=== PATIENT | male | born 2005 | race Two or more races ===

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

== ENCOUNTER 2023-02-06 07:52 | Emergency (ER) | payer MEDICAID ==
[2023-02-06] MEDS ORDERED: Ondansetron 4 MG/2 ML SDV IVPUSH ONE (08:27)
[2023-02-06] MEDS ORDERED: Sodium Chloride 0.9% 1,000 ML IV SCH (08:30)
[2023-02-06 08:52] LABS: CORONAVIRUS COVID-19 NAA NEGATIVE (NEGATIVE)
== END 2023-02-06 10:47 | disposition home or self-care (01) ==
LOC: JD.ED 07:52
DX: R11.2 Nausea with vomiting, unspecified (principal); Z20.822 Contact with and (suspected) exposure to COVID-19
CPT/HCPCS: 0241U; 36415; 80053; 85025; 96361; 96374; 99284; J2405; J7030; 99283

== ENCOUNTER 2023-02-16 16:52 | Emergency (ER) | payer MEDICAID ==
[2023-02-16] MEDS ORDERED: Ondansetron 4 MG/2 ML SDV IVPUSH ONE (17:15)
[2023-02-16] MEDS ORDERED: LORazepam 2 MG/ML SDV IVPUSH ONE (17:15)
[2023-02-16] MEDS ORDERED: Sodium Chloride 0.9% 10 ML Syringe FLUSH PRN (17:15)
[2023-02-16 17:27] LABS: BASOPHILS ABSOLUTE AUTO 0.02 K/mm3 (0.01-0.08); BASOPHILS PERCENT AUTO 0.2 % (0.1-1.2); EOSINOPHILS ABSOLUTE AUTO 0.15 K/mm3 (0.04-0.54); EOSINOPHILS PERCENT AUTO 1.4 (0.8-7.0); HEMATOCRIT 46.6 % (40.1-51.0); HEMOGLOBIN 16.2 gm/dl (13.7-17.5); IMMATURE GRAN ABSOLUTE AUTO 0.02 K/mm3 (0.00-0.10); IMMATURE GRAN PERCENT AUTO 0.2 % (<=1.0); LYMPHOCYTES ABSOLUTE AUTO 2.48 K/mm3 (1.32-3.57); LYMPHOCYTES PERCENT AUTO 23.6 % (21.8-53.1); MEAN CORPUSCULAR HEMOGLOBIN 29.9 pg (25.7-32.2); MEAN CORPUSCULAR HGB CONC 34.8 g/dl (32.2-35.5); MEAN PLATELET VOLUME 9.2 fl (9.4-12.3); MONOCYTES ABSOLUTE AUTO 1.07 K/mm3 (0.30-0.82); MONOCYTES PERCENT AUTO 10.2 % (5.3-12.2); NEUTROPHILS ABSOLUTE AUTO 6.79 K/mm3 (1.78-5.38); NEUTROPHILS PERCENT AUTO 64.4 % (34.0-67.9); PLATELET COUNT,PLT 348 K/mm3 (163-337); RED BLOOD CELL COUNT 5.42 M/mm3 (4.63-6.08); WHITE BLOOD CELL COUNT,WBC 10.53 K/mm3 (4.23-9.07)
[2023-02-16 18:00] LABS: A/G RATIO 1.3 (1-2); ALBUMIN 4.6 g/dl (3.4-5.0); ANION GAP 14.8 (5-15); BILIRUBIN TOTAL 0.5 mg/dL (0.2-1.0); CALCIUM 9.2 mg/dL (8.5-10.1); EST CRCL DRUG DOSING (CG) 114.72 mL/min; MAGNESIUM 2.1 mg/dL (1.8-2.4); POTASSIUM,K 3.8 mEq/L (3.5-5.1); PROTEIN TOTAL,TP 8.2 g/dl (6.4-8.2)
== END 2023-02-16 19:08 | disposition home or self-care (01) ==
LOC: JD.ED 16:52
DX: F41.1 Generalized anxiety disorder (principal); F43.0 Acute stress reaction
CPT/HCPCS: 36415; 80053; 83735; 84484; 85025; 93005; 96374; 96375; 99285; J2060; J2405; J3490

== ENCOUNTER 2023-04-16 14:01 | Emergency (ER) | payer MEDICAID ==
[2023-04-16 15:18] LABS: HEMATOCRIT 42.2 % (40.1-51.0); HEMOGLOBIN 14.7 gm/dl (13.7-17.5); MEAN CORPUSCULAR HEMOGLOBIN 30.3 pg (25.7-32.2); MEAN CORPUSCULAR HGB CONC 34.8 g/dl (32.2-35.5); MEAN PLATELET VOLUME 9.6 fl (9.4-12.3); PLATELET COUNT,PLT 315 K/mm3 (163-337); RED BLOOD CELL COUNT 4.85 M/mm3 (4.63-6.08); WHITE BLOOD CELL COUNT,WBC 5.89 K/mm3 (4.23-9.07)
[2023-04-16 15:49] LABS: BAND PERCENT MAN 0 % (0-10); BASOPHILS PERCENT MAN 0 (0.2-1.2); EOSINOPHILS PERCENT MAN 4 % (0.8-7.0); LYMPHOCYTES % ATYPICAL MANUAL 0 %; LYMPHOCYTES PERCENT MAN 49 % (20-40); MONOCYTES PERCENT MAN 2 % (2-10); PLATELET COUNT ESTIMATE ADEQUATE
[2023-04-16 15:54] LABS: A/G RATIO 1.2 (1-2); ALBUMIN 4.2 g/dl (3.4-5.0); ANION GAP 15.5 (5-15); BILIRUBIN TOTAL 0.6 mg/dL (0.2-1.0); EST CRCL DRUG DOSING (CG) 107.71 mL/min; POTASSIUM,K 3.5 mEq/L (3.5-5.1); PROTEIN TOTAL,TP 7.8 g/dl (6.4-8.2)
== END 2023-04-16 16:22 | disposition home or self-care (01) ==
LOC: JD.ED 14:01
DX: R07.81 Pleurodynia (principal); F17.210 Nicotine dependence, cigarettes, uncomplicated
CPT/HCPCS: 36415; 71045; 71045-26; 80053; 85007; 85027; 93005; 99284

== ENCOUNTER 2023-10-08 18:46 | Emergency (ER) | payer SELFPAY ==
[2023-10-08] MEDS ORDERED: Ibuprofen 800 MG Tab PO ONE (20:26)
[2023-10-08] MEDS ORDERED: Acetaminophen 325 MG Tab PO ONE (20:26)
== END 2023-10-08 20:54 | disposition home or self-care (01) ==
LOC: JD.ED 18:46
DX: M25.531 Pain in right wrist (principal)
CPT/HCPCS: 73110; 73130; 99283; A9270; 99282

== ENCOUNTER 2024-06-24 12:07 | Emergency (ER) | payer SELFPAY ==
[2024-06-24 13:13] LABS: BASOPHILS PERCENT AUTO 0.4 % (0.0-1.0); EOSINOPHILS ABSOLUTE AUTO 0.2 K/mm3 (0.0-0.4); EOSINOPHILS PERCENT AUTO 1.9 % (0.0-6.0); HEMATOCRIT 41.1 % (42.0-52.0); HEMOGLOBIN 14.3 gm/dl (14.0-18.0); IMMATURE GRAN ABSOLUTE AUTO 0.05 K/mm3 (0.00-0.05); IMMATURE GRAN PERCENT AUTO 0.5 % (0.0-0.4); LYMPHOCYTES ABSOLUTE AUTO 1.2 K/mm3 (1.0-4.8); LYMPHOCYTES PERCENT AUTO 11.9 % (24.0-44.0); MEAN CORPUSCULAR HEMOGLOBIN 29.7 pg (28.0-32.0); MEAN CORPUSCULAR HGB CONC 34.8 g/dl (32.0-36.0); MEAN CORPUSCULAR VOLUME 85.3 fl (83.0-99.0); MEAN PLATELET VOLUME 8.8 fl (9.4-12.4); MONOCYTES ABSOLUTE AUTO 0.8 K/mm3 (0.0-0.8); MONOCYTES PERCENT AUTO 7.5 % (0.0-8.0); NEUTROPHILS ABSOLUTE AUTO 8.1 K/mm3 (1.8-7.7); NEUTROPHILS PERCENT AUTO 77.8 % (41.0-71.0); PLATELET COUNT,PLT 283 K/mm3 (150-400); RED BLOOD CELL COUNT 4.82 M/mm3 (4.52-5.90); WHITE BLOOD CELL COUNT,WBC 10.39 K/mm3 (3.9-11.3)
[2024-06-24 13:38] LABS: A/G RATIO 1.2 (1-2); ALBUMIN 4.2 g/dl (3.4-5.0); BILIRUBIN TOTAL 0.6 mg/dL (0.2-1.0); CALCIUM 9.5 mg/dL (8.5-10.1); PROTEIN TOTAL,TP 7.6 g/dl (6.4-8.2)
== END 2024-06-24 14:37 | disposition home or self-care (01) ==
LOC: JD.ED 12:07
DX: J01.00 Acute maxillary sinusitis, unspecified (principal); Z79.899 Other long term (current) drug therapy
CPT/HCPCS: 36415; 80053; 85025; 99283; 99284

== ENCOUNTER 2024-10-27 16:57 | Emergency (ER) | payer SELFPAY | END 2024-10-27 20:29 | disposition home or self-care (01) | LOC: JD.ED 16:57 | DX: S61.211A Laceration without foreign body of left index finger without damage to nail, initial encounter (principal); W23.1XXA Caught, crushed, jammed, or pinched between stationary objects, initial encounter | CPT/HCPCS: 73140-26-F1; 73140-F1; 99283 ==